=== PATIENT | female | born 1985 | race Caucasian/White ===

== ENCOUNTER → 2023-10-07 12:13 | Outpatient (REF) | payer BC, SELFPAY | LOC: RAD 12:13 | PROVIDERS: ATTENDING PHYSICIAN Nurse Practitioner | DX: J06.9 Acute upper respiratory infection, unspecified (principal) | CPT/HCPCS: 71046 ==

== ENCOUNTER → 2024-09-03 13:25 | Outpatient (REF) | payer OTHER, SELFPAY | LOC: HWRAD 13:25 | PROVIDERS: ATTENDING PHYSICIAN Student in an Organized Health Care Education/Training Program; FAMILY PHYSICIAN Internal Medicine | DX: N80.9 Endometriosis, unspecified (principal) | CPT/HCPCS: 76830; 76856 ==

== ENCOUNTER → 2024-09-25 11:15 | Outpatient (REF) | payer OTHER, SELFPAY | LOC: PAVMRI 11:15 | PROVIDERS: ATTENDING PHYSICIAN Nurse Practitioner | DX: G35 Multiple sclerosis (principal); Z79.899 Other long term (current) drug therapy | CPT/HCPCS: 70553; 72156; 72157; A9575 ==